=== PATIENT | female | born 1955 | race Caucasian/White ===

== ENCOUNTER 2017-11-26 08:48 | Day surgery (SDC) | payer BC ==
[~2017-11-26] VITALS: Ht 162.6 cm; Wt 66.2 kg
[~2017-11-26 08:48] MED LIST: ADVIL200 M1 PO; LIPITOR10 MG PO; VITAMIN D2000 UNIT PO
[2017-11-26 16:18] VITALS: BP 139/75
[2017-11-26 17:15] VITALS: BP 142/76
== END 2017-11-26 17:20 | disposition home or self-care (01) ==
LOC: SDC 08:48
DX: H33.22 Serous retinal detachment, left eye (principal); I10 Essential (primary) hypertension; E78.5 Hyperlipidemia, unspecified; Z87.891 Personal history of nicotine dependence
CPT/HCPCS: J0690; J0713; J1100; J1885; J2405; J3010; J3300